=== PATIENT | female | born 1935 | race Caucasian/White ===

== ENCOUNTER 2023-09-07 10:43 | Outpatient (AMB) | payer MEDICARE, SELFPAY ==
--- NOTE | 2023-09-07 10:52 | A.OFFVIS_ITS ---
Intake Vital Signs 09/07/23 10:54 Height 5 ft 3 in Weight 117 lb BMI 20.7 BP 100/82 Blood Pressure Location Rt brachial Position Sitting Pulse 58 Pulse Source Pulse Oximeter Pulse Oximetry (%) 99 Intake Visit Reasons: 09/01 LVM+letter ENP-KEVIN Intake Note: Patient presents for sleep apnea Allergies No Known Allergies Allergy (Verified 09/07/23 10:57) HPI HPI Comments History of Present Illness Details 88 y/o female patient presents for new i n-person visit to manage sleep apnea. Pt reports that she was diagnosed with severe degree of sleep apnea many years ago. The AHI was over 100/hr. She tried CPAP but not tolerated, it disrupted her sleep more. Pt wants to retry CPAP. Pt continues to have non refreshing sleep, and daytime tiredness. She also wakes up frequently to go to bathroom. She has overactive bladder. Pt reports severe restless legs syndrome and takes pramipexole 1 mg BID, it helps her sleep better. Sleep questionnaire: Have you ever been diagnosed with a sleep disorder? Severe degree of sleep apnea many years ago. Have you ever had a sleep study in the past? Yes. Have you ever been treated for a sleep disorder? Yes, CPAP but not tolerated well. Do you take medications for a sleep disorder? Pramipexole, Do you snore? Yes. Do you wake up gasping at night? No. Do you have episodes of apneas? Yes. If yes, are they witnessed? Yes. Do you have episodes of nocturnal chest pain or dyspnea? No. Do you have difficulty initiating sleep? Not very much. Do you have difficulty maintaining sleep? Yes. Do you wake up tired? No. Do you have headaches upon awakening? No. Do you wake up with dry mouth or throat? Yes. Do you have GERD? No. Do you have nocturia? Yes. Do you have nocturnal leg cramps? No. Do you have symptoms of restless legs? Yes. Do you act out your dreams? No. Sleep hygiene questionnaire: What is your usual sleep routine? Usual bedtime is at 11 :30 pm; Usual wake up time is at 6 am. Do you take naps? No. Is your sleep environment cool, dark, and quiet? Not really. Do you exercise? Yes, swimming three times a week. Do you take caffeine or other stimulants? One cup of coffee in the morning. Do you use electronics in bed? Occasionally. What is your work schedule? No. Hypersomnolence questionnaire: Do you have daytime tiredness or fatigue? Not really. Do you easily fall asleep when inactive? Yes, sometimes. Have you ever had episodes of sudden weakness? No. Have you ever had episodes of sudden weakness associated with strong emotions? No. PFSH Surgical History (Updated 09/07/23 @ 11:00 by HARSH Lorenzo) H/O: hysterectomy H/O mitral valve repair Hx of appendectomy Family History (Updated 09/07/23 @ 11:01 by HARSH Lorenzo) Father Heart disease Son Stroke Social History (Updated 09/07/23 @ 11:01 by HARSH Lorenzo) Alcohol intake: current Patient Tobacco Use Status: Never used Tobacco Review of Systems Const All systems reviewed & are unremarkable except as noted in HPI and below Physical Exam Vital Signs: Last Vital Signs Pulse 58 09/07/23 10:54 BP 100/82 09/07/23 10:54 Pulse Ox 99 09/07/23 10:54 BMI result Body Mass Index 20.7 Const General: cooperative Nutritional Appearance: average body habitus Orientation/consciousness: patient oriented x3 Limitations: ambulation with walker Neck Neck: Yes full ROM and Yes supple Resp Effort & Inspection: normal respiratory effort and able to speak in complete sentences Neuro General: patient oriented x3 and moves all extremities Cranial nerves: Yes CN's II-XII intact bilaterally Motor exam (neuro): 5/5 motor strength present throughout Psych Appearance: grossly normal Mental Status: mental status grossly normal Speech and movement: Normal speech and movement present Affect: normal affect Attitude: cooperative Assessment & Plan Assessment & Plan (1) Sleep apnea: Comment: Hx of severe degree of sleep apnea, the AHI was over 100/hr. Code(s): G47.30 - Sleep apnea, unspecified Plan Pt is advised to undergo in lab sleep study to assess for sleep apnea. Will f/u with pt after study to discuss results and appropriate treatment options. Pt to call with any worsening concerns or questions. Orders: Orders RT PSG in-lab sleep study Today G47.30 - Sleep apnea, unspecified Coding Level of Care Code New Pt Level 3 (34099) Diagnoses Sleep apnea G47.30
[2023-09-07 10:54] VITALS: BP 100/82; PULSE 58; O2SAT 99; BMI 20.7
== END 2023-09-07 11:27 | disposition home or self-care (01) ==
PROVIDERS: PCP Nurse Practitioner Family; Visit Provider Nurse Practitioner Family
DX: G47.30 Sleep apnea, unspecified (principal)
CPT/HCPCS: 99203

== ENCOUNTER → 2023-09-07 10:43 | Outpatient (BNVA) | payer MEDICARE, SELFPAY | PROVIDERS: PCP Nurse Practitioner Family; Visit Provider Nurse Practitioner Family | DX: G47.30 Sleep apnea, unspecified (principal) | CPT/HCPCS: 99202 ==

== ENCOUNTER → 2023-09-19 20:30 | Outpatient (REF) | payer MEDICARE, SELFPAY | LOC: HO.SL 20:30 | PROVIDERS: PCP Nurse Practitioner Family; Visit Provider Nurse Practitioner Family | DX: G47.33 Obstructive sleep apnea (adult) (pediatric) (principal) | CPT/HCPCS: 95810 ==

== ENCOUNTER → 2023-09-19 23:11 | Outpatient (BNV) | payer MEDICARE, SELFPAY | PROVIDERS: PCP Nurse Practitioner Family; Visit Provider Psychiatry & Neurology Neurology | DX: G47.33 Obstructive sleep apnea (adult) (pediatric) (principal) | CPT/HCPCS: 95810 ==